=== PATIENT | male | born 1950 | race Caucasian/White ===

== ENCOUNTER → 2017-05-02 | Outpatient (CLI) | payer OTHER ==
--- NOTE | 2017-05-02 16:30 | CT ---
Examination: CT of the head. Clinical history: Cluster headaches, prior skin cancer, left eye removal 10 years ago. Technique: Multiple axial images were obtained from the skull base to the vertex. No intravenous cont rast was administered. Dose reduction techniques including automated exposure control (AEC) and adjus tment of mA and kV were utilized. Comparison: None available. Findings: There are postsurgical changes from an exenteration of the left orbit, as well as a left medial antro stomy and surgical resection of the left-sided ethmoid air cells. There is no intra-, or extra-axial hemorrhage, acute infarct or mass lesion noted. The ventricles are normal in size and symmetric about the midline, with no midline shift or mass effe ct noted. The posterior fossa, brain stem and orbital regions are within normal limits. A small air-fluid level is present in the left sphenoid sinus and there is marked mucosal thickening seen associated with the left frontal sinus, consistent with inflammatory sinus disease. No additional bony or soft tissue abnormality is noted. Impression: 1. No acute infarct or hemorrhage. 2. There are postsurgical changes from an exenteration of the left orbit, as well as a left medial an trostomy and surgical resection of the left-sided ethmoid air cells. 3. Inflammatory sinus disease, as described above. Reported By:
== END ==
LOC: RAD 15:14
PROVIDERS: ATTEND Nurse Practitioner Family
DX: G44.009 Cluster headache syndrome, unspecified, not intractable (principal)
CPT/HCPCS: 70450

== ENCOUNTER → 2017-08-21 | Outpatient (CLI) | payer OTHER ==
--- NOTE | 2017-08-21 15:41 | MRI ---
MRI left hip without contrast Indication: Left hip osteoarthritis Technique: Multisequence, multiplanar MR images of the left hip were obtained without IV contrast. Comparison: Radiograph 08/12/2016 Findings: No acute fracture, malalignment, suspicious osseous lesion or osteonecrosis of either hip is identifi ed. There is advanced degenerative arthrosis of the left hip with complete associated superior joint spac e loss and moderate reactive subchondral sclerosis, cyst formation and edema within the superior femo ral head and acetabulum. There are also prominent collar osteophytes about the femoral head/neck and anterior inferior acetabulum. Diffuse degenerative fraying and blunting of the labrum is also seen. N o discrete paralabral cyst or significant joint effusion is identified. Mild degenerative changes of the right hip are also noted, as evidenced by mild superior joint space loss with subchondral cyst formation within the anterior superior acetabulum. The SI joints and pubic symphysis are normal. The proximal hamstrings and remaining myotendinous structures about the bilate ral hips and pelvis are normal. There is colonic diverticulosis and large partially visualized bilate ral hydroceles. The remaining imaged contents of the lower abdomen and pelvis are grossly unremarkabl e. Impression: Advanced degenerative arthrosis of the left hip, as detailed above. Mild DJD of the right hip, colonic diverticulosis and partially visualized large bilateral hydroceles . Reported By:
== END ==
LOC: RAD 14:02
PROVIDERS: ATTEND Nurse Practitioner Family
DX: M16.12 Unilateral primary osteoarthritis, left hip (principal)
CPT/HCPCS: 73721

== ENCOUNTER → 2017-09-18 | Outpatient (CLI) | payer OTHER ==
[~2017-09-18] MED LIST: LEXISCAN IV ONE
== END ==
LOC: RAD 08:51
PROVIDERS: ATTEND Nurse Practitioner Family
DX: Z01.818 Encounter for other preprocedural examination (principal); R07.89 Other chest pain; R06.02 Shortness of breath
CPT/HCPCS: 78452; 93017; A4222; A9502; J2785